=== PATIENT | male | born 1995 | race Caucasian/White ===

== ENCOUNTER 2020-06-23 12:43 | Emergency (ER) | payer BC ==
[~2020-06-23] VITALS: Ht 193 cm; Wt 81.6 kg
--- NOTE | 2020-06-23 13:07 | NUR ---
BIBRA TO ER BED 13. AAOX4. NOT IN RESP DISTRESS. AMBULATED FROMGURNEY TO BED. PT WAS BROUGHT IN BECAUSE HIS BOSS TOLD HIM TO BECAUSE HE HAS BEEN DRINKING FOR THE PAST 5 DAYS. PT HAS NO MEDICAL COMPLAINT. NO NOTED S/S OF WITHDRAWAL. PT DENIES SI NOR HI. WAWS AT THE BEDSIDE FOR EVAL.
[2020-06-23 13:33] LABS: BASOPHILS % (AUTO) 0.4 % (0.0-2.0); EOSINOPHILS % (AUTO) 0.6 % (0.0-6.0); HEMATOCRIT 52 % (39-51); HEMOGLOBIN 17.7 g/dL (13.5-17.5); LYMPHOCYTES # (AUTO) 1.5 /CMM (0.8-4.8); LYMPHOCYTES % (AUTO) 24.7 % (20.0-44.0); MEAN CORPUSCULAR HGB CONC 34 g/dl (31.0-36.0); MEAN CORPUSCULAR VOLUME 89 fL (80-96); MONOCYTES # (AUTO) 0.5 /CMM (0.1-1.30); MONOCYTES % (AUTO) 8.2 % (2.0-12.0); NEUTROPHILS # (AUTO) 4.1 /CMM (1.8-8.9); NEUTROPHILS % (AUTO) 66.1 % (43.0-81.0); PLATELET COUNT (AUTO) 269 /CMM (150-450); RED BLOOD CELL COUNT(AUTO) 5.81 MIL/uL (4.5-6.0); WHITE BLOOD COUNT (AUTO) 6.2 K/uL (4.3-11.0)
[2020-06-23 13:43] LABS: CALCIUM, SERUM 9.5 mg/dL (8.5-10.1); CARBON DIOXIDE 30 mmol/L (21-32); CHLORIDE 99 mmol/L (98-107); CREATININE 0.8 mg/dL (0.6-1.3); GLUCOSE 99 mg/dL (74-106); POTASSIUM 3.8 mmol/L (3.5-5.1); SODIUM SERUM 139 mmol/L (136-145); UREA NITROGEN, BLOOD 11 mg/dL (7-18)
[2020-06-23 13:48] LABS: ALANINE AMINOTRANSFERASE 35 U/L (12-78); ALBUMIN 4.4 g/dL (3.4-5.0); ALCOHOL, BLOOD 164 mg/dL (0-0); ALKALINE PHOSPHATASE 66 U/L (46-116); ASPARTATE AMINOTRANSFERASE 31 U/L (15-37); BILIRUBIN,DIRECT 0.2 mg/dL (0.0-0.2); BILIRUBIN,TOTAL 0.8 mg/dL (0.2-1.0); TOTAL PROTEIN, SERUM 8.7 g/dL (6.4-8.2)
[2020-06-23 13:49] LABS: ACETAMINOPHEN < 10 ug/ml (10-30)
--- NOTE | 2020-06-23 14:26 | NUR ---
urine sample collected and sent to lab
[2020-06-23] MEDS ORDERED: ONDANSETRON 4 MG TAB.RAPDIS SL ONE (15:00)
[2020-06-23] MEDS ORDERED: FAMOTIDINE (20 MG) 20 MG TABLET PO ONE (15:00)
[2020-06-23] MEDS ORDERED: LIDOCAINE VISCOUS 2% UD 15 ML UDC MM ONE (15:00)
[2020-06-23] MEDS ORDERED: MAG HYDROX/AL HYDROX/SIMETH 30 ML UDC PO ONE (15:00)
--- NOTE | 2020-06-23 15:09 | NUR ---
Client Analyst consult requested by Dr. Yousif. SW met with the patient at bedside. Patient is alert and oriented x4. Patient was receptive to speaking to this SW. Patient is a 24 year-old male. Patient reported that he is currently depressed and due to this reason patient had been heavily drinking alcohol for the past week. Patient reported that this has also caused him to miss work and reported to this SW that his boss asked him to come to the hospital for an assessment.Patient reported a history of Methamphetamine however did not report to this SW if it was current use. Patient denies suicidal and homicidal ideation. Patient denies auditory and visual hallucinations. Patient reported a mental health diagnosis of depression. Patient denied previous psychiatric hospitalizations. Patient and SW discussed the need of mental health and substance use community resources and patient was receptive to these resources. Patient was calm and cooperative throughout this assessment. Patient made appropriate eye contact. Patient's speech and thought process was clear and concise. No further SS interventions are needed at this time. SW remains available for all needs regarding this patient.
[2020-06-23] MEDS ORDERED: MAG HYDROX/AL HYDROX/SIMETH 30 ML UDC ONE (15:14)
[2020-06-23] MEDS ORDERED: ONDANSETRON 4 MG TAB.RAPDIS ONE (15:14)
[2020-06-23] MEDS ORDERED: LIDOCAINE VISCOUS 2% UD 15 ML UDC ONE (15:14)
[2020-06-23] MEDS ORDERED: FAMOTIDINE (20 MG) 20 MG TABLET ONE (15:14)
--- NOTE | 2020-06-23 15:15 | NUR ---
PT IS AMBULATORY ON STEADY GAIT. PT AMBULATED TO THE BATHROOM
--- NOTE | 2020-06-23 15:18 | NUR ---
SW provided the patient with the following mental health and substance use resources: Substance Abuse resources provided included: [facility] Substance Abuse Self-Helpline ([facility]) ; [facility] [address] [facility] [place] [id number] ; [facility] [address] [facility] [facility] [address] ; [facility] [address] [place] [address] ; [facility] [address] [id number] ; [facility] [address] [facility] [facility] [address] ; [facility] [address] [facility] [id number] ; [facility] Substance Abuse Helpline([facility] ; [facility] ; [facility]; [facility] [place]; [facility] [place]; [facility] [place]; [place]; [facility] [place]; Alcoholics Anonymous -[facility]; Bc-Mqpq-Uizflhv ; Marijuana Anonymous [facility]; Narcotics Anonymous www.na.org. Mental Health resources provided: [facility] [address], [place] [address] ; [facility] [address] [facility] [address], [place] [address] ; [facility] [address], [place] [address] ; [facility] [place] [address]
[2020-06-23 15:32] VITALS: BP 134/90
== END 2020-06-23 15:32 | disposition other institution (70) ==
LOC: ER 12:43
DX: F32.9 Major depressive disorder, single episode, unspecified (principal); K29.20 Alcoholic gastritis without bleeding; F10.10 Alcohol abuse, uncomplicated; F15.10 Other stimulant abuse, uncomplicated; Z60.2 Problems related to living alone; Y90.6 Blood alcohol level of 120-199 mg/100 ml
CPT/HCPCS: 36415; 80048; 80076; 80299; 80307; 80320; 85025; 99285; Q0162; G0480